=== PATIENT | male | born 1930 | race Asian ===

== ENCOUNTER 2018-03-16 14:11 | Emergency (ER) | payer OTHER ==
[2018-03-16 14:40] VITALS: TEMP 98.4
[2018-03-16] MEDS ORDERED: MORPHINE SULFATE 10 MG/ML SOL IV PRN (14:40)
[2018-03-16] MEDS ORDERED: SODIUM CHLORIDE 0.9% FLUSH 10 ML SOL IV PRN (14:40)
[2018-03-16 15:25] LABS: BASOPHILS % (AUTO) 3 % (0-3); EOSINOPHILS % (AUTO) 3 % (0-9); HEMATOCRIT 43 % (39-53); HEMOGLOBIN 13.7 gm/dl (13.5-17.7); LYMPHOCYTES % (AUTO) 18.1 % (10-50); MEAN CORPUSCULAR HEMOGLOBIN 25.1 pg (27.0-32.0); MONOCYTES % (AUTO) 10.6 % (0-12); NEUTROPHILS % (AUTO) 64.8 % (37-80)
[2018-03-16 15:27] LABS: MEAN CORPUSCULAR VOLUME 79 fL (80-100)
[2018-03-16 15:29] LABS: APPEARANCE,URINE Clear; BILIRUBIN,URINE NEGATIVE (NEGATIVE); COLOR,URINE Yellow; GLUCOSE, URINE (UA) NEGATIVE (NEGATIVE); KETONES,URINE NEGATIVE (NEGATIVE); LEUKOCYTE ESTERASE ,URINE NEGATIVE (NEGATIVE); NITRATE,URINE NEGATIVE (NEGATIVE); OCCULT BLOOD,URINE NEGATIVE (NEG-TRACE); UROBILINOGEN,URINE 0.2 (0.2-1.0 EU)
[2018-03-16 15:47] LABS: ALBUMIN 3.2 gm/dl (3.4-5.0); ALKALINE PHOSPHATASE 60 IU/L (46-116); ALT 26 IU/L (14-63); AST 23 IU/L (15-37); BILIRUBIN,TOTAL 0.2 mg/dl (0.2-1.0); BLOOD UREA NITROGEN 19 mg/dl (7-18); CALCIUM 8.6 mg/dl (8.5-10.1); CHLORIDE 102 mMol/L (98-107); CREATINE KINASE 129 U/L (39-308); CREATININE 0.99 mg/dl (0.80-1.30); GLOM FILT RATE 71 mL/min (>60); GLUCOSE 118 mg/dl (74-106); POTASSIUM 4.3 mMol/L (3.5-5.1); SODIUM 137 mMol/L (136-145); TOTAL PROTEIN 7.1 gm/dl (6.4-8.2); TROP I < 0.017 ng/ml (0.000-0.056)
[2018-03-16 15:52] LABS: BACTERIA NEGATIVE (< 1+); CRYSTALS NEGATIVE (0-3 AVE/HPF); EPITHELIAL CELLS 0-2 (SQUAMOUS); RBC,URINE NEG (0-3AV/HPF); WBC,URINE 0-1 (0-5AV/HPF)
[2018-03-16 15:54] VITALS: BP 148/68; PULSE 83; RESP 23; O2SAT 99
== END 2018-03-16 16:50 | DRG 556 ==
LOC: ED 14:11
DX: M79.1 Myalgia (principal)
CPT/HCPCS: 36415; 71045; 73060; 80053; 81001; 82550; 83880; 84484; 85025; 85378; 93005; 99283